=== PATIENT | female | born 1960 | race Caucasian/White ===

== ENCOUNTER 2022-02-27 08:01 | Day surgery (SDC) | payer OTHER ==
[2022-02-27 08:41] VITALS: RESP 16; TEMP 97.5
[2022-02-27] MEDS ORDERED: LACTATED RINGERS 1,000 ML IV ONE (08:41)
[2022-02-27] MEDS ORDERED: LIDOCAINE 1% (10MG/ML) FOR IV START INTRADERMA ONE (08:42)
[2022-02-27] MEDS ORDERED: PROPOFOL 10 MG/ML 20 ML VIAL IV ONE (09:28)
--- NOTE | 2022-02-27 09:46 | P.PCN ---
Date of Procedure: 02/27/22 Procedure(s) Performed: BRIEF HISTORY: Patient is a 61-year-old pleasant white female scheduled for an elective colonoscopy as a part of prior history of colon polyps. Last colonoscopy was 5 years ago. PROCEDURE PERFORMED: Colonoscopy. PREOPERATIVE DIAGNOSIS: History of colon polyps. IV sedation per Anesthesia. PROCEDURE: After informed consent was obtained, the patient, was brought into the endoscopy unit. IV sedation was administered by Anesthesia under continuous monitoring. Digital rectal examination was normal. Initially the Olympus CF-160 flexible video colonoscope was then inserted in the rectum, gradually advanced into the cecum without any difficulty. Careful examination was performed as the scope was gradually being withdrawn. Ileocecal valve and the appendiceal orifice were visualized and appeared normal. Prep was fair.. Mucosa of the cecum, ascending colon, transverse colon, descending colon, sigmoid colon, and rectum appeared normal. Retroflexion was performed in the rectum and no lesions were seen. The patient tolerated the procedure well. IMPRESSION: Normal-appearing colon from rectum to cecum with no evidence of colorectal neoplasia . RECOMMENDATIONS: Findings of this examination were discussed with the patient as well as a family.. He was advised to have a repeat colonoscopy in 10 years.
[2022-02-27 10:06] VITALS: BP 163/74; PULSE 58
== END 2022-02-27 10:33 | disposition home or self-care (01) ==
LOC: ORWHC2ENDO 08:01
PROVIDERS: ATTEND Internal Medicine Gastroenterology
DX: Z12.11 Encounter for screening for malignant neoplasm of colon (principal); F17.210 Nicotine dependence, cigarettes, uncomplicated; K21.9 Gastro-esophageal reflux disease without esophagitis; Z79.899 Other long term (current) drug therapy; Z86.010 Personal history of colon polyps
CPT/HCPCS: 45378; J2704

== ENCOUNTER → 2024-02-13 | Outpatient (CLI) | payer OTHER ==
--- NOTE | 2024-02-13 14:57 | CT ---
EXAMINATION TYPE: CT abdomen pelvis wo/w con CT DLP: 1382 mGycm, Automated exposure control for dose reduction was used. DATE OF EXAM: 02/13/2024 1:58 PM COMPARISON: None CLINICAL INDICATION:Female, 63 years old with history of R63.4 ABNORMAL WEIGHT LOSS R10.10 UPPER ABDO TIM; Abnormal weight loss. Upper abdominal pain. TECHNIQUE: Standard CT of the abdomen and pelvis before and after the uneventful administration of 100 cc of Isovue-300 intravenously. Oral contrast given. Coronal and sagittal reformats were performe d. FINDINGS: LOWER CHEST: Unremarkable ABDOMEN LIVER: Multiple bilateral lobar hypodense lesions identified largest is within the right hepatic dome measuring up to 2.4 cm. Proximally 25 in number. Noncirrhotic morphology. GALLBLADDER AND BILE DUCTS: Unremarkable. PANCREAS: Large hypodense heterogenous enhancing pancreatic head mass measuring 4.6 x 5.0 cm (series 6, image 30). Mild pancreatic ductal dilatation. This results in mass effect upon the portal venous c onfluence. The portal venous system appears patent. Approximately 180 degrees abutment of the SMV erma r the confluence. Distal splenic vein abuts the pancreatic mass. Proximally however a degree abutment of the main portal vein by the mass. No involvement of the celiac artery. The common hepatic artery and GDA are encased 360 degrees by the pancreatic mass. Less than 180 degree abutment of the SMA. The mass abuts the distal stomach wall with loss of fat plane. SPLEEN: Unremarkable. ADRENAL GLANDS: Unremarkable. KIDNEYS AND URETERS: No evidence of hydronephrosis or renal calculus. The kidneys enhance symmetrical ly. Contrast is demonstrated within both collecting systems on the delayed phase. PELVIS BLADDER: Incompletely distended but grossly unremarkable. REPRODUCTIVE: Uterus is atrophic or surgically absent. ABDOMEN & PELVIS STOMACH AND BOWEL: Stomach and duodenum are unremarkable. No focal bowel wall thickening or surroundi ng inflammatory changes. The appendix is within normal limits. Enteric contrast reaches the distal sm all bowel. No evidence of bowel obstruction. PERITONEUM: No evidence of pneumoperitoneum or free fluid. Couple of left lateral abdominal omental n odules identified with largest measured 1.5 cm (series 6, image 52). Another possible subcentimeter n odule in the right lower quadrant (series 6, image 58). VASCULATURE: Infrarenal fusiform abdominal aorta ectasia measuring up to 2.5 cm. Mild atherosclerotic calcification of the aorta and its branches. MUSCULOSKELETAL: No acute osseous abnormalities. No aggressive osseous lesions. Degenerative changes of both SI joints. Multilevel anterior vertebral body osteophyte formation. LYMPH NODES: No evidence for lymphadenopathy. SOFT TISSUE/ABDOMINAL WALL: Unremarkable IMPRESSION: Findings highly suggestive of pancreatic cancer with hepatic metastasis and few peritoneal metastatic nodules. Further workup is recommended. A Yellow level critical message alert has been initiated for Rhys Anand MD via the [employer] Critical Results System on 02/13/2024 2:53 PM. This message alert has been sent to Rhys albert MD via the preferences provided by the clinician for the receipt of Radiology Critical Findings. M essage ID [id number]. [facility], , 02/13/2024 2:54 PM
== END | disposition home or self-care (01) ==
LOC: RADCTMAIN 12:04
PROVIDERS: ATTEND Family Medicine
DX: R63.4 Abnormal weight loss (principal); R10.10 Upper abdominal pain, unspecified
CPT/HCPCS: 74178

== ENCOUNTER 2024-03-26 14:59 | Observation (INO) | payer OTHER ==
--- NOTE | 2024-03-26 15:30 | ED ---
Abdominal Pain HPI - General Source: patient, family, RN notes reviewed <Dinora Ruiz - Last Filed: 03/26/24 15:27> - General Source: patient, family, RN notes reviewed, old records reviewed, Caregiver Mode of arrival: ambulatory Limitations: no limitations - History of Present Illness MD Complaint: abdominal pain -: days(s) Location: diffuse, epigastric, suprapubic Radiation: epigastric, suprapubic Migration to: periumbilical Severity: moderate Severity scale (1-10): 5 Quality: aching Consistency: intermittent Improves With: nothing <Tino Roper - Last Filed: 03/27/24 17:21> - General Stated Complaint: port infection Time Seen by Provider: 03/26/24 15:15 - History of Present Illness Initial Comments: Quick [id number] female with stage IV pancreatic cancer presenting to the emergency department with daughter for complaint of weakness, lethargy, nausea, vomiting, diarrhea, and symptoms of jaundice. Patient follows with [facility]. Was advised by primary care provider to report emergency department for further evaluation. (Dinora Ruiz) This is a 63 female with pancreatic cancer coming in for weakness nausea vomiting diarrhea not feeling well (Tino Roper) - Related Data Home Medications Medication Instructions Recorded Confirmed Amoxic-Pot Clav 875-125Mg 1 tab PO Q12HR 03/27/24 03/27/24 [Augmentin 875-125] HYDROcodone/APAP 5-325MG [[place] 1 tab PO Q4HR PRN 03/27/24 03/27/24 5-325] Lipase/Protease/Amylase [Evon Ames 1 cap PO TID-W/MEALS 03/27/24 03/27/24 12,000 Units Capsule] OLANZapine [ZyPREXA] 2.5 mg PO HS 03/27/24 03/27/24 Omeprazole 20 mg PO DAILY 03/27/24 03/27/24 Sertraline [Zoloft] 100 mg PO DAILY 03/27/24 03/27/24 Silver Sulfadiazine [Silver 1 applic TOPICAL BID 03/27/24 03/27/24 Sulfadiazine 1%] lisinopriL [Zestril] 10 mg PO DAILY 03/27/24 03/27/24 Allergies Allergy/AdvReac Type Severity Reaction Status Date / Time No Known Allergies Allergy Verified 03/26/24 15:30 Review of Systems ROS Other: All systems not noted in ROS Statement are negative. <RaffaeleirlandaDinora - Last Filed: 03/26/24 15:27> ROS Other: All systems not noted in ROS Statement are negative. <Tino Roper - Last Filed: 03/27/24 17:21> ROS Statement: Those systems with pertinent positive or pertinent negative responses have been documented in the HPI. General Exam <Dinora Ruzi - Last Filed: 03/26/24 15:27> General appearance: alert, in no apparent distress Head exam: Present: atraumatic, normocephalic, normal inspection Eye exam: Present: normal appearance, PERRL, EOMI. Absent: scleral icterus, conjunctival injection, periorbital swelling ENT exam: Present: normal exam, mucous membranes moist Neck exam: Present: normal inspection. Absent: tenderness, meningismus, lymphadenopathy Respiratory exam: Present: normal lung sounds bilaterally. Absent: respiratory distress, wheezes, rales, rhonchi, stridor Cardiovascular Exam: Present: regular rate, normal rhythm, normal heart sounds. Absent: systolic murmur, diastolic murmur, rubs, gallop, clicks GI/Abdominal exam: Present: soft, normal bowel sounds. Absent: distended, tenderness, guarding, rebound, rigid Extremities exam: Present: normal inspection, full ROM, normal capillary refill. Absent: tenderness, pedal edema, joint swelling, calf tenderness Back exam: Present: normal inspection Neurological exam: Present: alert, oriented X3, CN II-XII intact Psychiatric exam: Present: normal affect, normal mood Skin exam: Present: warm, dry, intact, normal color. Absent: rash <Tino Roper - Last Filed: 03/27/24 17:21> - General Exam Comments Initial Comments: Visual Physical Exam Vital signs reviewed General: Well-appearing, nontoxic, no acute distress. Head: Normocephalic, atraumatic Eyes: PERRLA, EOMI, scleral icterus ENT: Airway patent Chest: Nonlabored breathing Skin: No visual rash, yellowing of skin Neuro: Alert and oriented 3 Musculoskeletal: No gross abnormalities (Stieler,Dinora) Course <Tino Roper - Last Filed: 03/27/24 17:21> Vital Signs 03/26/24 03/26/24 03/26/24 15:24 18:44 19:45 Temperature 98.1 F Pulse Rate 80 77 76 Respiratory 16 18 18 Rate Blood Pressure 93/65 121/84 139/74 O2 Sat by Pulse 100 99 98 Oximetry 03/26/24 03/27/24 03/27/24 21:45 03:35 08:00 Temperature Pulse Rate 77 78 85 Respiratory 14 16 18 Rate Blood Pressure 140/86 111/96 167/85 O2 Sat by Pulse 98 98 98 Oximetry 03/27/24 03/27/24 03/27/24 11:00 12:00 13:00 Temperature Pulse Rate 75 70 75 Respiratory 16 20 20 Rate Blood Pressure 167/88 171/102 110/60 O2 Sat by Pulse 98 99 98 Oximetry 03/27/24 03/27/24 03/27/24 14:45 16:00 17:00 Temperature Pulse Rate 70 68 66 Respiratory 20 20 20 Rate Blood Pressure 142/90 120/68 132/94 O2 Sat by Pulse 98 98 99 Oximetry - Reevaluation(s) Reevaluation #1: 03/26/24 18:16 Medical records reviewed (Tino Roper) Reevaluation #2: 03/26/24 18:16 Patient symptoms unchanged (Tino Roper) Reevaluation #3: 03/26/24 18:16 Patient informed of results questions answered (Tino Roper) Reevaluation #4: Was pt. sent in by a medical professional or institution (, PA, HORSE TREKKING GUIDE, urgent care, hospital, or fpc...) When possible be specific @ -no Did you speak to anyone other than the patient for history (EMS, parent, family, police, friend...)? What history was obtained from this source @ -no Did you review nursing and triage notes (agree or disagree)? Why? @ -agree Are old charts reviewed (outside hosp., previous admission, EMS record, old EKG, old radiological studies, urgent care reports/EKG's, fpc records)? Report findings @ -yes Differential Diagnosis (chest pain, altered mental status, abdominal pain women, abdominal pain men, vaginal bleeding, weakness, fever, dyspnea, syncope, headache, dizziness, GI bleed, back pain, seizure, CVA, palpatations, mental health, musculoskeletal)? @ -prior EKG interpreted by me (3pts min.). @ -yes X-rays interpreted by me (1pt min.). @ -no CT interpreted by me (1pt min.). @ -Yes positive for colitis U/S interpreted by me (1pt. min.). @ -no What testing was considered but not performed or refused? (CT, X-rays, U/S, labs)? Why? @ -none What meds were considered but not given or refused? Why? @ -none Did you discuss the management of the patient with other professionals (prof hurley i.e. , PA, HORSE TREKKING GUIDE, lab, RT, psych nurse, health and social care teacher, machine guide base winder, teacher, fisheries technical officer, manager of case)? Give summary @ -no Was smoking cessation discussed for >3mins.? @ -no Was critical care preformed (if so, how long)? @ -no Were there social determinants of health that impacted care today? How? (Homelessness, low income, unemployed, alcoholism, drug addiction, transportation, low edu. Level, literacy, decrease access to med. care, custodial, rehab)? @ -none Was there de-escalation of care discussed even if they declined (Discuss DNR or withdrawal of care, Hospice)? DNR status @ -no What co-morbidities impacted this encounter? (DM, HTN, Smoking, COPD, CAD, Cancer, CVA, ARF, Chemo, Hep., AIDS, mental health diagnosis, sleep apnea, morbid obesity)? @ -none Was patient admitted / discharged? Hospital course, mention meds given and route, prescriptions, significant lab abnormalities, going to OR and other pertinent info. @ - 63 female will be admitted for colitis and nausea vomiting with underlying pancreatic cancer Admitted Undiagnosed new problem with uncertain prognosis? @ -no Drug Therapy requiring intensive monitoring for toxicity (Heparin, Nitro, Insulin, Cardizem)? @ -no Were any procedures done? @ -no Diagnosis/symptom? @ -Nausea vomiting pain and cancer Acute, or Chronic, or Acute on Chronic? @ -Acute Uncomplicated (without systemic symptoms) or Complicated (systemic symptoms)? @ -Complicated Side effects of treatment? @ -no Exacerbation, Progression, or Severe Exacerbation? @ -exacerbation Poses a threat to life or bodily function? How? (Chest pain, USA, MN, pneumonia, PE, COPD, DKA, ARF, appy, cholecystitis, CVA, Diverticulitis, Homicidal, Suicidal, threat to staff... and all critical care pts) @ -yes extremes of age with stage IV cancer (Tino Roper) Reevaluation #5: Differential Abdominal Pain Women: Appendicitis, Cholecystitis, diverticulosis, ischemic bowel, pancreatitis, hepatitis, UTI, gastroenteritis, AAA, incarcerated hernia, bowel obstruction, constipation, inflammatory bowel, hepatitis, peptic ulcer disease, splenic infarction, perforated viscus, vulvitis, ovarian torsion, PID, kidney stone, placenta abruption, this is not meant to be an all-inclusive list Differential Weakness: Hypoglycemia, shock, sepsis, hyponatremia, anemia, infection, [place], ETOH, adverse medicine reaction, overdose, stroke, this is not meant to be an all-inclusive list. (Tino Roper) - Consultations Consultation #1: Spoke with Dr. Miller who admit this patient (Tino Roper) Medical Decision Making <Dinora Ruiz - Last Filed: 03/26/24 15:27> - Lab Data Result diagrams: 03/27/24 05:29 03/27/24 05:29 - Radiology Data Radiology results: report reviewed (CT abdomen pelvis positive for colitis), image reviewed <Tino Roper - Last Filed: 03/27/24 17:21> - Medical Decision Making I completed the quick note portion of this chart signed Dinora Ruiz PA-C (Dinora Ruiz) 63 female will be admitted for colitis and nausea vomiting with underlying pancreatic cancer (Tino Roper) - Lab Data Lab Results 03/26/24 03/26/24 03/26/24 Range/Units 18:39 18:39 18:39 WBC 12.9 H (3.8-10.6) k/uL RBC 3.55 L (3.80-5.40) m/uL Hgb 10.7 L (11.4-16.0) gm/dL Hct 34.4 (34.0-46.0) % MCV 96.9 (80.0-100.0) fL MCH 30.1 (25.0-35.0) pg MCHC 31.1 (31.0-37.0) g/dL RDW 14.5 (11.5-15.5) % Plt Count 313 (150-450) k/uL MPV 10.7 Neutrophils % 79 % Lymphocytes % 12 % Monocytes % 5 % Eosinophils % 2 % Basophils % 2 % Neutrophils # 10.2 H (1.3-7.7) k/uL Lymphocytes # 1.5 (1.0-4.8) k/uL Monocytes # 0.6 (0-1.0) k/uL Eosinophils # 0.3 (0-0.7) k/uL Basophils # 0.2 (0-0.2) k/uL PT 12.5 (10.0-12.5) sec INR 1.2 H (<1.2) APTT 24.7 (22.0-30.0) sec Sodium 138 (137-145) mmol/L Potassium 4.1 (3.5-5.1) mmol/L Chloride 105 (98-107) mmol/L Carbon Dioxide 26 (22-30) mmol/L Anion Gap 7 mmol/L BUN 20 H (7-17) mg/dL Creatinine 0.58 (0.52-1.04) mg/dL Est GFR (CKD-EPI)AfAm >90 (>60 ml/min/1.73 sqM) Est GFR (CKD-EPI)NonAf >90 (>60 ml/min/1.73 sqM) Glucose 123 H (74-99) mg/dL Plasma Lactic Acid Reji (0.7-2.0) mmol/L Calcium 9.7 (8.4-10.2) mg/dL Magnesium (1.6-2.3) mg/dL Total Bilirubin 1.1 (0.2-1.3) mg/dL AST 39 H (14-36) U/L ALT 34 (4-34) U/L Alkaline Phosphatase 269 H (38-126) U/L Total Protein 6.9 (6.3-8.2) g/dL Albumin 4.0 (3.5-5.0) g/dL Amylase 48 (30-110) U/L Lipase 167 (23-300) U/L Influenza Type A (PCR) (Not Detectd) Influenza Type B (PCR) (Not Detectd) RSV (PCR) (Not Detectd) SARS-CoV-2 (PCR) (Not Detectd) 03/26/24 03/26/24 03/26/24 Range/Units 18:39 18:39 18:39 WBC (3.8-10.6) k/uL RBC (3.80-5.40) m/uL Hgb (11.4-16.0) gm/dL Hct (34.0-46.0) % MCV (80.0-100.0) fL MCH (25.0-35.0) pg MCHC (31.0-37.0) g/dL RDW (11.5-15.5) % Plt Count (150-450) k/uL MPV Neutrophils % % Lymphocytes % % Monocytes % % Eosinophils % % Basophils % % Neutrophils # (1.3-7.7) k/uL Lymphocytes # (1.0-4.8) k/uL Monocytes # (0-1.0) k/uL Eosinophils # (0-0.7) k/uL Basophils # (0-0.2) k/uL PT (10.0-12.5) sec INR (<1.2) APTT (22.0-30.0) sec Sodium (137-145) mmol/L Potassium (3.5-5.1) mmol/L Chloride (98-107) mmol/L Carbon Dioxide (22-30) mmol/L Anion Gap mmol/L BUN (7-17) mg/dL Creatinine (0.52-1.04) mg/dL Est GFR (CKD-EPI)AfAm (>60 ml/min/1.73 sqM) Est GFR (CKD-EPI)NonAf (>60 ml/min/1.73 sqM) Glucose (74-99) mg/dL Plasma Lactic Acid Reji 1.4 (0.7-2.0) mmol/L Calcium (8.4-10.2) mg/dL Magnesium 2.0 (1.6-2.3) mg/dL Total Bilirubin (0.2-1.3) mg/dL AST (14-36) U/L ALT (4-34) U/L Alkaline Phosphatase (38-126) U/L Total Protein (6.3-8.2) g/dL Albumin (3.5-5.0) g/dL Amylase (30-110) U/L Lipase (23-300) U/L Influenza Type A (PCR) Not Detected (Not Detectd) Influenza Type B (PCR) Not Detected (Not Detectd) RSV (PCR) Not Detected (Not Detectd) SARS-CoV-2 (PCR) Not Detected (Not Detectd) Disposition <Dinora Ruiz - Last Filed: 03/26/24 15:27> Is patient prescribed a controlled substance at d/c from ED?: No Time of Disposition: 21:16 <Tino Roper - Last Filed: 03/27/24 17:21> Clinical Impression: Colitis, Nausea & vomiting, Dehydration Disposition: ADMITTED IP TO THIS HOSP Condition: Fair
[2024-03-26 18:59] LABS: Basophils # (A) 0.2 k/uL (0-0.2); Basophils % (A) 2 %; Eosinophils # (A) 0.3 k/uL (0-0.7); Eosinophils % (A) 2 %; HCT 34.4 % (34.0-46.0); HGB 10.7 gm/dL (11.4-16.0); Lymphocytes # (A) 1.5 k/uL (1.0-4.8); Lymphocytes % (A) 12 %; MCH 30.1 pg (25.0-35.0); MCHC 31.1 g/dL (31.0-37.0); MCV 96.9 fL (80.0-100.0); Mean Platelet Volume 10.7; Monocytes # (A) 0.6 k/uL (0-1.0); Monocytes % (A) 5 %; Neutrophils # (A) 10.2 k/uL (1.3-7.7); Neutrophils % (A) 79 %; Platelet Count 313 k/uL (150-450); RBC 3.55 m/uL (3.80-5.40); RDW 14.5 % (11.5-15.5); WBC 12.9 k/uL (3.8-10.6)
[2024-03-26 19:04] LABS: ALT 34 U/L (4-34); African American GFR (CKD) >90 (>60 ml/min/1.73 sqM); Amylase 48 U/L (30-110); Anion Gap 7 mmol/L; Blood Urea Nitrogen 20 mg/dL (7-17); Calcium 9.7 mg/dL (8.4-10.2); Carbon Dioxide 26 mmol/L (22-30); Chloride 105 mmol/L (98-107); Glucose 123 mg/dL (74-99); INR 1.2 (<1.2); Lipase 167 U/L (23-300); Non-African American GFR(CKD) >90 (>60 ml/min/1.73 sqM); Partial Thromboplastin Time 24.7 sec (22.0-30.0); Prothrombin Time 12.5 sec (10.0-12.5); Sodium 138 mmol/L (137-145); Total Bilirubin 1.1 mg/dL (0.2-1.3); Total Protein 6.9 g/dL (6.3-8.2)
[2024-03-26 19:14] LABS: AST 39 U/L (14-36); Potassium 4.1 mmol/L (3.5-5.1)
[2024-03-26 19:15] LABS: Alkaline Phosphatase 269 U/L (38-126)
--- NOTE | 2024-03-26 20:53 | CT ---
EXAMINATION TYPE: CT abdomen pelvis w con DATE OF EXAM: 03/26/2024 8:25 PM COMPARISON: None. CLINICAL INDICATION: Female, 63 years old with history of ab pain, N/V, weakness, pancreatic CA; Ab p ain, N/V, weakness, pancreatic CA. TECHNIQUE: Axial CT abdomen pelvis w con;Sagittal and coronal reformats were created on a separate w orkstation. Contrast used:100ml mL of Isovue 300 with IV Contrast, (none if empty) Oral contrast used: without Oral Contrast (none if empty) CT DLP: 611.7 mGycm, Automated exposure control for dose reduction was used. FINDINGS: LOWER CHEST: Unremarkable ABDOMEN LIVER: Diffuse metastatic disease throughout the liver. Large mass abuts the liver parenchyma. GALLBLADDER AND BILE DUCTS: Unremarkable. PANCREAS: Large pancreatic head mass measuring measuring 51 x 40 mm. Upstream dilation of the pancrea tic duct. SPLEEN: Unremarkable. ADRENAL GLANDS: Unremarkable. KIDNEYS AND URETERS: Nonobstructing calculus suggested on the right. No evidence of hydronephrosis or renal calculus. The ureters are unremarkable. PELVIS BLADDER: No evidence for wall thickening or mass given limitations of exam. REPRODUCTIVE: The uterus is surgically absent. ABDOMEN & PELVIS STOMACH AND BOWEL: The duodenum is displaced secondary to large pancreatic mass. No evidence of bowel obstruction. Wall thickening of the sigmoid colon series 201 image 70 PERITONEUM/RETROPERITONEUM: No evidence of pneumoperitoneum. Trace free fluid in the pelvis. VASCULATURE: Mild atherosclerotic calcifications are present throughout the abdominal aorta and its b ranches. No evidence of aortic aneurysm. The IVC is poorly visualized at the level of the pancreatic mass. As a slitlike appearance. MUSCULOSKELETAL: No acute osseous abnormalities. Mild disc degeneration changes are present throughou t the thoracolumbar spine. LYMPH NODES: No gross evidence for lymphadenopathy. There is soft tissue deposits in the mesentery in the left abdomen including series 201 image 37 measuring 10 mm; along the colon series 201 image 50. Left anterior paracolic gutters image 54 measuring 26 x 13 mm. SOFT TISSUE/ABDOMINAL WALL: Unremarkable IMPRESSION: 1. Sigmoid wall thickening, correlate for colitis of the sigmoid colon. 2. Mass effect on excluded. 3. Progression of disease with increasing size and number of metastatic disease as well as enlarging Pancreatic mass with metastatic disease throughout the liver and a few mesenteric omental and paraco lic gutter deposits. 4. Slitlike appearance of the IVC is a courses posterior to the pancreatic mass. [facility], , 03/26/2024 8:51 PM
[2024-03-26] MEDS ORDERED: ONDANSETRON 4 MG/2 ML VIAL IVP PRN (21:14)
[2024-03-26] MEDS ORDERED: NALOXONE 0.4 MG/ML 1 ML VIAL IV PRN (21:14)
[2024-03-26] MEDS: SODIUM CHLORIDE 0.9% 1,000 ML IV SCH (21:47)
[2024-03-27 05:53] LABS: Basophils # (A) 0.1 k/uL (0-0.2); Basophils % (A) 1 %; Eosinophils # (A) 0.4 k/uL (0-0.7); Eosinophils % (A) 3 %; HGB 10.2 gm/dL (11.4-16.0); Hypochromasia Slight; Lymphocytes # (A) 2.2 k/uL (1.0-4.8); Lymphocytes % (A) 18 %; MCH 31.3 pg (25.0-35.0); MCHC 31.9 g/dL (31.0-37.0); MCV 98.2 fL (80.0-100.0); Mean Platelet Volume 8.9; Monocytes # (A) 0.8 k/uL (0-1.0); Monocytes % (A) 6 %; Neutrophils # (A) 8.7 k/uL (1.3-7.7); Neutrophils % (A) 70 %; Platelet Count 273 k/uL (150-450); RBC 3.25 m/uL (3.80-5.40); RDW 13.9 % (11.5-15.5); WBC 12.4 k/uL (3.8-10.6)
[2024-03-27 06:03] LABS: ALT 30 U/L (4-34); AST 36 U/L (14-36); African American GFR (CKD) >90 (>60 ml/min/1.73 sqM); Albumin 3.2 g/dL (3.5-5.0); Alkaline Phosphatase 259 U/L (38-126); Anion Gap 3 mmol/L; Blood Urea Nitrogen 15 mg/dL (7-17); Calcium 9.1 mg/dL (8.4-10.2); Carbon Dioxide 26 mmol/L (22-30); Chloride 108 mmol/L (98-107); Glucose 87 mg/dL (74-99); Magnesium 1.9 mg/dL (1.6-2.3); Non-African American GFR(CKD) >90 (>60 ml/min/1.73 sqM); Phosphorus 3.6 mg/dL (2.5-4.5); Potassium 3.2 mmol/L (3.5-5.1); Sodium 137 mmol/L (137-145); Total Protein 5.7 g/dL (6.3-8.2)
[2024-03-27] MEDS: MORPHINE SULFATE 4 MG/ML SYRINGE IV PRN (08:13)
[2024-03-27] MEDS: PANTOPRAZOLE 40 MG TABLET PO SCH (11:05)
[2024-03-27] MEDS: lisinopriL 10 MG TAB PO SCH (11:05)
[2024-03-27] MEDS: ENOXAPARIN 40 MG/0.4 ML SYRINGE SQ SCH (11:05)
[2024-03-27] MEDS: SERTRALINE 100 MG TAB PO SCH (11:05)
[2024-03-27] MEDS: LIPASE 5,000/PROTEASE 17,000/AMYLASE 24,000 PO SCH (11:29)
[2024-03-27] MEDS: NICOTINE 14MG/24HR PATCH TRANSDERM SCH (12:29)
--- NOTE | 2024-03-27 12:33 | P.HPIM ---
History of Present Illness H&P Date: 03/27/24 Chief Complaint: Nausea vomiting This is a pleasant 63-year-old patient follows Dr. Rhys Anand. Patient been diagnosed with stage IV pancreatic cancer by Dr. Higinio Berrios. Diagnosed in February 2024. Patient supposed to get chemotherapy was told she is too weak for the same. Currently no treatment has been started. Patient present with 2 days of nausea vomiting. Does get intermittently increased pain. In the upper abdomen. But she states she rather pain tolerant. Normally has a bowel movement every other day. Appetite is fair. Now presents with nausea vomiting. No fever no chills. Longstanding smoker. Some shortness of breath. Review of systems: GEN.: Tired EYES: None HEENT: None NECK: None RESPIRATORY: Some shortness of breath CARDIOVASCULAR: None GASTROINTESTINAL: As above GENITOURINARY: None MUSCULOSKELETAL: None LYMPHATICS: None HEMATOLOGICAL: None PSYCHIATRY: None NEUROLOGICAL: None Social history: Lives with her . Works as a cook at [employer]. No alcohol. Smokes half a pack a day for about 53 years. Physical examination: VITAL SIGNS: Afebrile, 70, 20, 171 x 102, 99% room air GENERAL: BMI 21.3, sitting in bed awake not in distress. EYES: Pupils equal. Conjunctiva inocencio l. HEENT: External appearance of nose and ears normal, oral cavity grossly normal. NECK: JVD not raised; masses not palpable. HEART: First and second heart sounds are normal; no edema. LUNGS: Respiratory rate normal; diminished breath sounds. ABDOMEN: Soft, epigastric tenderness, no guarding rigidity, liver spleen not p alpable, no masses palpable. PSYCH: Alert and oriented x3; mood and affect inocencio l. MUSCULOSKELETAL:No Clubbing/cyanosis;muscles-grossly intact NEUROLOGICAL: Cranial nerves grossly intact; no facial asymmetry, power and sensation grossly intact. LYMPHATICS: No lymph nodes palpable in the axilla and neck INVESTIGATIONS, reviewed in the clinical context: March 27, 2024: White count 12.4 hemoglobin 10.2 sodium 137 potassium 3.2 creatinine 0.46 alkaline phosphatase 259 albumin 3.2 Influenza type A, type B, RSV, COVID-19: Not detected CT abdomen pelvis: Sigmoid wall thickening. Correlate for colitis of sigmoid colon. Enlarging pancreatic mass with metastatic disease throughout the liver and a few mesenteric omental and paracolic gutter deposits. Assessment and plan: -Acute episode of nausea vomiting for 2 days. Patient has known pancreatic cancer stage IV. IV fluids. Liquid diet. Pain control. -Possible sigmoid colitis Liquid diet. IV Zosyn -COPD, mild in a smoker DuoNeb -Chronic nicotine dependence cigarette smoker Nicotine patch -. Essential hypertension Zestril. -Chronic pain from pancreatitis [place] as needed -GERD Omeprazole -Depression Zoloft -Full code Care was discussed with patient. Questions answered. Past Medical History Past Medical History: Cancer, Hypertension Additional Past Medical History / Comment(s): stage 4 pancreatic cancer. right drop foot History of Any Multi-Drug Resistant Organisms: None Reported Past Surgical History: No Surgical Hx Reported Past Psychological History: No Psychological Hx Reported Smoking Status: Current every day smoker Past Alcohol Use History: None Reported Past Drug Use History: Marijuana Medications and Allergies Home Medications Medication Instructions Recorded Confirmed Type Amoxic-Pot Clav 875-125Mg 1 tab PO Q12HR 03/27/24 03/27/24 History [Augmentin 875-125] HYDROcodone/APAP 5-325MG [[place] 1 tab PO Q4HR PRN 03/27/24 03/27/24 History 5-325] Lipase/Protease/Amylase [[place]on Dr 1 cap PO TID-W/MEALS 03/27/24 03/27/24 History 12,000 Units Capsule] OLANZapine [ZyPREXA] 2.5 mg PO HS 03/27/24 03/27/24 History Omeprazole 20 mg PO DAILY 03/27/24 03/27/24 History Sertraline [Zoloft] 100 mg PO DAILY 03/27/24 03/27/24 History Silver Sulfadiazine [Silver 1 applic TOPICAL BID 03/27/24 03/27/24 History Sulfadiazine 1%] lisinopriL [Zestril] 10 mg PO DAILY 03/27/24 03/27/24 History Allergies Allergy/AdvReac Type Severity Reaction Status Date / Time No Known Allergies Allergy Verified 03/26/24 15:30 Physical Exam Vitals: Vital Signs Temp Pulse Resp BP Pulse Ox 03/27/24 08:00 85 18 167/85 98 03/27/24 03:35 78 16 111/96 98 03/26/24 21:45 77 14 140/86 98 03/26/24 19:45 76 18 139/74 98 03/26/24 18:44 77 18 121/84 99 03/26/24 15:24 98.1 F 80 16 93/65 100 Intake and Output 03/26/24 03/27/24 03/27/24 22:59 06:59 14:59 Other: Weight 54.431 kg Results CBC & Chem 7: 03/27/24 05:29 03/27/24 05:29 Labs: Abnormal Lab Results - Last 24 Hours (Table) 03/26/24 03/26/24 03/26/24 Range/Units 18:39 18:39 18:39 WBC 12.9 H (3.8-10.6) k/uL RBC 3.55 L (3.80-5.40) m/uL Hgb 10.7 L (11.4-16.0) gm/dL Hct (34.0-46.0) % Neutrophils # 10.2 H (1.3-7.7) k/uL INR 1.2 H (<1.2) Potassium (3.5-5.1) mmol/L Chloride (98-107) mmol/L BUN 20 H (7-17) mg/dL Creatinine (0.52-1.04) mg/dL Glucose 123 H (74-99) mg/dL AST 39 H (14-36) U/L Alkaline Phosphatase 269 H (38-126) U/L Total Protein (6.3-8.2) g/dL Albumin (3.5-5.0) g/dL 03/27/24 03/27/24 Range/Units 05:29 05:29 WBC 12.4 H (3.8-10.6) k/uL RBC 3.25 L (3.80-5.40) m/uL Hgb 10.2 L (11.4-16.0) gm/dL Hct 32.0 L (34.0-46.0) % Neutrophils # 8.7 H (1.3-7.7) k/uL INR (<1.2) Potassium 3.2 L (3.5-5.1) mmol/L Chloride 108 H (98-107) mmol/L BUN (7-17) mg/dL Creatinine 0.46 L (0.52-1.04) mg/dL Glucose (74-99) mg/dL AST (14-36) U/L Alkaline Phosphatase 259 H (38-126) U/L Total Protein 5.7 L (6.3-8.2) g/dL Albumin 3.2 L (3.5-5.0) g/dL
--- NOTE | 2024-03-27 12:50 | XR ---
EXAMINATION TYPE: XR chest 2V DATE OF EXAM: 03/27/2024 COMPARISON: NONE . HISTORY: Shortness of breath. Stage IV pancreatic cancer TECHNIQUE: Frontal and lateral views of the chest are obtained. FINDINGS: There is no focal air space opacity, pleural effusion, or pneumothorax seen. The cardiac silhouette size is within normal limits. The osseous structures are intact. There is a Mediport cat heter on the right with the tip in the SVC/RA junction. IMPRESSION: No acute cardiopulmonary process. [facility], , 03/27/2024 12:47 PM
[2024-03-27] MEDS: HYDROcodone/APAP 5-325MG 1 EACH TAB PO PRN (14:41)
[2024-03-27] MEDS: PIPERACILLIN-TAZOBACTAM 3.375 GM in SODIUM CHLORIDE 0.9% 100 ML IVPB SCH (15:24)
[2024-03-27] MEDS: OLANZapine 2.5 MG TAB PO SCH (20:22)
[2024-03-28 13:32] LABS: African American GFR (CKD) >90 (>60 ml/min/1.73 sqM); Anion Gap 7 mmol/L; Blood Urea Nitrogen 8 mg/dL (7-17); Carbon Dioxide 27 mmol/L (22-30); Chloride 106 mmol/L (98-107); Glucose 100 mg/dL (74-99); Non-African American GFR(CKD) >90 (>60 ml/min/1.73 sqM); Potassium 3.1 mmol/L (3.5-5.1); Sodium 140 mmol/L (137-145)
[2024-03-28] MEDS: POTASSIUM CHLORIDE ER 20 MEQ TAB.ER PO STA (14:55)
--- NOTE | 2024-03-28 20:08 | P.PN ---
Progress Note - Text Progress Note Date: 03/28/24 Chief Complaint: Nausea vomiting This is a pleasant 63-year-old patient follows Dr. Rhys Anand. Patient been diagnosed with stage IV pancreatic cancer by Dr. Higinio Berrios. Diagnosed in February 2024. Patient supposed to get chemotherapy was told she is too weak for the same. Currently no treatment has been started. Patient present with 2 days of nausea vomiting. Does get intermittently increased pain. In the upper abdomen. But she states she rather pain tolerant. Normally has a bowel movement every other day. Appetite is fair. Now presents with nausea vomiting. No fever no chills. Longstanding smoker. Some shortness of breath. March 28: Receiving IV Zosyn. Abdominal pain much better. Tolerated full liquids. Will advance to soft bland diet for supper. Discussed with patient daughter. If doing well hopefully discharge tomorrow. Increase activity DC IV fluids. No BM today Active Medications Hydrocodone Bitart/Acetaminophen (Hydrocodone/Apap 5-325mg 1 Each Tab) 1 each PO Q4HR PRN PRN Reason: pain Last Admin: 03/28/24 06:10 Dose: 1 each Lipase/Protease/Amylase (Lipase 5,000/Protease 17,000/Amylase 24,000) 2 each PO TID-W/MEALS [facility] Last Admin: 03/28/24 18:26 Dose: 2 each Enoxaparin Sodium (Enoxaparin 40 Mg/0.4 Ml Syringe) 40 mg SQ DAILY [facility] Last Admin: 03/28/24 08:48 Dose: 40 mg Piperacillin Sod/Tazobactam (Sod 3.375 gm/ Sodium Chloride) 100 mls @ 25 mls/hr IVPB Q8HR [facility]; Protocol Last Admin: 03/28/24 16:44 Dose: 25 mls/hr Lisinopril (Lisinopril 10 Mg Tab) 10 mg PO DAILY [facility] Last Admin: 03/28/24 08:48 Dose: 10 mg Naloxone HCl (Naloxone 0.4 Mg/Ml 1 Ml Vial) 0.2 mg IV Q2M PRN PRN Reason: Opioid Reversal Nicotine (Nicotine 14mg/24hr Patch) 1 patch TRANSDERM DAILY [facility] Last Admin: 03/28/24 08:48 Dose: 1 patch Olanzapine (Olanzapine 2.5 Mg Tab) 2.5 mg PO HS [facility] Last Admin: 03/27/24 20:22 Dose: 2.5 mg Ondansetron HCl (Ondansetron 4 Mg/2 Ml Vial) 4 mg IVP Q8HR PRN PRN Reason: Nausea And Vomiting Pantoprazole Sodium (Pantoprazole 40 Mg Tablet) 40 mg PO AC-BRKFST [facility] Last Admin: 03/28/24 08:48 Dose: 40 mg Sertraline HCl (Sertraline 100 Mg Tab) 100 mg PO DAILY [facility] Last Admin: 03/28/24 08:48 Dose: 100 mg Silver Sulfadiazine (Silver Sulfadiazine 1% Cream 25 Gm Tube) 1 applic TOPICAL BID [facility]; Protocol Last Admin: 03/28/24 08:49 Dose: 1 applic Social history: Lives with her . 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 Smokes half a pack a day for about 53 years. Physical examination: VITAL SIGNS: 97.9, 65, 18, 125 x 77, 98% room air GENERAL: Sitting up in bed, comfortable EYES: Pupils equal. Conjunctiva inocencio l. HEENT: External appearance of nose and ears normal, oral cavity grossly normal. NECK: JVD not raised; masses not palpable. HEART: First and second heart sounds are normal; no edema. LUNGS: Respiratory rate normal; diminished breath sounds. ABDOMEN: Soft, some epigastric tenderness, no guarding rigidity, liver spleen not palpable, no masses palpable. PSYCH: Alert and oriented x3; mood and affect inocencio l. MUSCULOSKELETAL:No Clubbing/cyanosis;muscles-grossly intact INVESTIGATIONS, reviewed in the clinical context: March 28: Potassium 3.1 March 27, 2024: White count 12.4 hemoglobin 10.2 sodium 137 potassium 3.2 creatinine 0.46 alkaline phosphatase 259 albumin 3.2 Influenza type A, type B, RSV, COVID-19: Not detected CT abdomen pelvis: Sigmoid wall thickening. Correlate for colitis of sigmoid colon. Enlarging pancreatic mass with metastatic disease throughout the liver and a few mesenteric omental and paracolic gutter deposits. Assessment and plan: -Acute episode of nausea vomiting for 2 days. Patient has known pancreatic cancer stage IV.: Better IV fluids. Liquid diet. Pain control. -Possible sigmoid colitis Tolerated liquid diet. Advance to soft bland. For dinner today . IV Zosyn -COPD, mild in a smoker DuoNeb -Hypokalemia Replace potassium -Chronic nicotine dependence cigarette smoker Nicotine patch -. Essential hypertension Zestril. -Chronic pain from pancreatitis [place] as needed -GERD Omeprazole -Depression Zoloft -Full code Change to soft plan for dinner today. Discussed with patient daughter. Increase activity. Hopefully discharge tomorrow. Past Medical History Past Medical History: Cancer, Hypertension Additional Past Medical History / Comment(s): stage 4 pancreatic cancer. right drop foot History of Any Multi-Drug Resistant Organisms: None Reported Past Surgical History: No Surgical Hx Reported Past Psychological History: No Psychological Hx Reported Smoking Status: Current every day smoker Past Alcohol Use History: None Reported Past Drug Use History: Marijuana
[2024-03-29 05:28] LABS: African American GFR (CKD) >90 (>60 ml/min/1.73 sqM); Anion Gap 3 mmol/L; Blood Urea Nitrogen 5 mg/dL (7-17); Calcium 8.8 mg/dL (8.4-10.2); Carbon Dioxide 25 mmol/L (22-30); Chloride 112 mmol/L (98-107); Glucose 103 mg/dL (74-99); Non-African American GFR(CKD) >90 (>60 ml/min/1.73 sqM); Potassium 3.6 mmol/L (3.5-5.1); Sodium 140 mmol/L (137-145)
[2024-03-29 08:07] VITALS: RESP 17; TEMP 97.9
[2024-03-29 10:17] VITALS: PULSE 79
[2024-03-29 11:27] VITALS: BP 147/94
--- NOTE | 2024-03-29 19:04 | P.DS ---
Providers Date of admission: 03/26/24 21:14 Expected date of discharge: 03/29/24 Attending physician: Ulises Miller Primary care physician: Rhys Anand [place] [facility] Course: Chief Complaint: Nausea vomiting This is a pleasant 63-year-old patient follows Dr. Rhys Anand. Patient been diagnosed with stage IV pancreatic cancer by Dr. Higinio Berrios. Diagnosed in February 2024. Patient supposed to get chemotherapy was told she is too weak for the same. Currently no treatment has been started. Patient present with 2 days of nausea vomiting. Does get intermittently increased pain. In the upper a bdomen. But she states she rather pain tolerant. Normally has a bowel movement every other day. Appetite is fair. Now presents with nausea vomiting. No fever no chills. Longstanding smoker. Some shortness of breath. March 28: Receiving IV Zosyn. Abdominal pain much better. Tolerated full liquids. Will advance to soft bland diet for supper. Discussed with patient daughter. If doing well hopefully discharge tomorrow. Increase activity DC IV fluids. No BM today. March 29: Abdominal pain greatly improved. Very keen to go home. Tolerating a diet. Patient follow-up with her oncologist. Patient to take another week of Augmentin. Low-fat diet. Blood pressure running on the higher side. Adjust blood pressure medications to lisinopril hydrochlorothiazide 02/27.[address] Discussed with patient. Discussed with nurse Discussion and discharge planning more than 35 minutes Social history: Lives with her . 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 Smokes half a pack a day for about 53 years. Physical examination: VITAL SIGNS 97.9, 71, 17, 147 x 94. GENERAL: Sitting up in bed, comfortable EYES: Pupils equal. Conjunctiva inocencio l. HEENT: External appearance of nose and ears normal, oral cavity grossly normal. NECK: JVD not raised; masses not palpable. HEART: First and second heart sounds are normal; no edema. LUNGS: Respiratory rate normal; diminished breath sounds. ABDOMEN: Soft, some epigastric tenderness, no guarding rigidity, liver spleen not palpable, no masses palpable. PSYCH: Alert and oriented x3; mood and affect inocencio l. MUSCULOSKELETAL:No Clubbing/cyanosis;muscles-grossly intact INVESTIGATIONS, reviewed in the clinical context: March 29: Potassium 3.6 creatinine 0.42 March 28: Potassium 3.1 March 27, 2024: White count 12.4 hemoglobin 10.2 sodium 137 potassium 3.2 creatinine 0.46 alkaline phosphatase 259 albumin 3.2 Influenza type A, type B, RSV, COVID-19: Not detected CT abdomen pelvis: Sigmoid wall thickening. Correlate for colitis of sigmoid colon. Enlarging pancreatic mass with metastatic disease throughout the liver and a few mesenteric omental and paracolic gutter deposits. Assessment and plan: -Possible sigmoid colitis Tolerating diet. . IV Zosyn Augmentin 875 twice daily for 7 days -Stage IV pancreatic cancer Continue pancreatic supplements Follow-up with his oncologist -COPD, mild in a smoker DuoNeb -Hypokalemia Replace potassium -Chronic nicotine dependence cigarette smoker Nicotine patch -. Essential hypertension Zestril. -Chronic pain from pancreatitis [place] as needed -GERD Omeprazole -Depression Zoloft -Full code Disposition: Home Past Medical History Past Medical History: Cancer, Hypertension Additional Past Medical History / Comment(s): stage 4 pancreatic cancer. right drop foot History of Any Multi-Drug Resistant Organisms: None Reported Past Surgical History: No Surgical Hx Reported Past Psychological History: No Psychological Hx Reported Smoking Status: Current every day smoker Past Alcohol Use History: None Reported Past Drug Use History: Marijuana Plan - Discharge Summary Discharge Rx Participant: No New Discharge Prescriptions: New Nicotine 14Mg/24Hr Patch [Habitrol] 1 patch TRANSDERM DAILY #30 patch Lisinopril-Hctz 10-12.5 mg [Zestoretic 10-12.5] 1 tab PO BID #60 tab Continue OLANZapine [ZyPREXA] 2.5 mg PO HS Lipase/Protease/Amylase [[place] 12,000 Units Capsule] 1 cap PO TID-W/MEALS Silver Sulfadiazine [Silver Sulfadiazine 1%] 1 applic TOPICAL BID HYDROcodone/APAP 5-325MG [[place] 5-325] 1 tab PO Q4HR PRN PRN Reason: pain Omeprazole 20 mg PO DAILY Sertraline [Zoloft] 100 mg PO DAILY Amoxic-Pot Clav 875-125Mg [Augmentin 875-125] 1 tab PO Q12HR #14 tab Discontinued lisinopriL [Zestril] 10 mg PO DAILY Discharge Medication List HYDROcodone/APAP 5-325MG [[place] 5-325] 1 tab PO Q4HR PRN 11/09/24 [History] Lipase/Protease/Amylase [[place] 12,000 Units Capsule] 1 cap PO TID-W/MEALS 03/27/24 [History] OLANZapine [ZyPREXA] 2.5 mg PO HS 03/27/24 [History] Omeprazole 20 mg PO DAILY 03/27/24 [History] Sertraline [Zoloft] 100 mg PO DAILY 03/27/24 [History] Silver Sulfadiazine [Silver Sulfadiazine 1%] 1 applic TOPICAL BID 03/27/24 [History] Amoxic-Pot Clav 875-125Mg [Augmentin 875-125] 1 tab PO Q12HR #14 tab 03/29/24 [Rx] Lisinopril-Hctz 10-12.5 mg [Zestoretic 10-12.5] 1 tab PO BID #60 tab 03/29/24 [Rx] Nicotine 14Mg/24Hr Patch [Habitrol] 1 patch TRANSDERM DAILY #30 patch 03/29/24 [Rx] Follow up Appointment(s)/Referral(s): Rhys Anand MD [Primary Care Provider] - 04/06/24 11:30 am Patient Instructions/Handouts: Amoxicillin/Clavulanate Potassium (By mouth), Nicotine (Absorbed through the skin), Lisinopril/Hydrochlorothiazide (By mouth), Colitis (ED) Discharge Disposition: HOME SELF-CARE
== END 2024-03-29 14:21 | disposition home or self-care (01) ==
LOC: EC 14:59 → 5NMEDONC 21:14 → 4SSUR 03-27 19:41 → 5NMEDONC 03-27 20:12
PROVIDERS: ADMIT Hospitalist; ATTEND Hospitalist
DX: C25.9 Malignant neoplasm of pancreas, unspecified (principal); K52.9 Noninfective gastroenteritis and colitis, unspecified; K85.90 Acute pancreatitis without necrosis or infection, unspecified; E87.6 Hypokalemia; E86.0 Dehydration; J44.9 Chronic obstructive pulmonary disease, unspecified; F17.210 Nicotine dependence, cigarettes, uncomplicated; I10 Essential (primary) hypertension; G89.29 Other chronic pain; K21.9 Gastro-esophageal reflux disease without esophagitis; F32.A Depression, unspecified; Z79.899 Other long term (current) drug therapy
CPT/HCPCS: 96366 ×3; 96372 ×3; 96365; 96375; 99285; 36415; 93005; 80053 ×2; 80048 ×2; 82150; 83605; 83690; 83735 ×2; 84100; 85025 ×2; 85610; 85730; 87636; 71046; 74177; G0378 ×4; S4990 ×3; J2543 ×3; J2270; J1650 ×3; Q9967